=== PATIENT | male | born 1940 | race Caucasian/White ===

== ENCOUNTER 2017-04-30 15:08 | Inpatient (IN) ==
--- NOTE | 2017-04-30 15:47 | Emergency Department Note ---
Disposition Clinical Impression: Atrial flutter, Syncope Disposition: Admitted As Inpatient Condition: Good General Adult HPI - General Chief complaint: ED Arrhythmia/Palpitations Stated complaint: sent by the [facility], wearing heart monit Time Seen by Provider: 04/30/17 15:37 Source: patient Limitations: no limitations - History of Present Illness Pain Scale: 0 - Related Data Home Medications Medication Instructions Recorded Confirmed Losartan Potassium [Cozaar] 100 mg PO DAILY 04/30/17 04/30/17 Warfarin [Coumadin] 5 mg PO DAILY 04/30/17 04/30/17 Allergies Allergy/AdvReac Type Severity Reaction Status Date / Time No Known Allergies Allergy Verified 04/30/17 15:28 Past Medical History - Past Medical History Medical history: Reports: atrial fibrillation, coronary artery disease, hypertension, other Psychiatric history: Reports: no psych history - Social History Smoking Status: Never smoker Smokeless Tobacco Status: No Alcohol use: Reports: rarely Drug use: Reports: none Physical Exam - General Limitations: no limitations General appearance: alert Course Vital Signs Temperature 98.6 F 04/30/17 15:28 Pulse Rate 40 04/30/17 15:28 Respiratory Rate 14 04/30/17 15:28 Blood Pressure 145/58 04/30/17 15:28 O2 Sat by Pulse Oximetry 98 04/30/17 15:28 Temperature 98.4 F 05/02/17 11:44 Pulse Rate 60 05/02/17 11:00 Respiratory Rate 18 05/02/17 11:00 Blood Pressure 154/85 05/02/17 11:00 O2 Sat by Pulse Oximetry 95 05/02/17 11:00 Oxygen Delivery Oxygen Delivery Room Air Medical Decision Making - Lab Data Result diagrams: 04/30/17 18:33 05/02/17 04:05 Lab Results 04/30/17 04/30/17 04/30/17 Range/Units 18:33 18:33 18:33 WBC 6.4 (4.3-11.1) K/mcL RBC 4.47 (4.19-5.50) M/mcL Hgb 14.5 (12.9-16.9) g/dL Hct 42.8 (37.5-50.1) % MCV 95.7 (83.0-100.0) fL MCH 32.4 (28.0-33.3) pg MCHC 33.9 (31.6-35.5) g/dL RDW 13.2 (11.5-14.5) % Plt Count 176 (140-400) K/mcL MPV 9.8 (9.4-12.4) fL Immature Gran % 0.2 (0-4) % Seg Neutrophils % 60.9 % Lymphocytes % 24.3 % Monocytes % 12.7 % Eosinophils % 1.1 % Basophils % 0.8 % Neutrophils # 3.9 (1.6-8.9) K/mcL Lymphocytes # 1.6 (0.6-4.6) K/mcL Monocytes # 0.8 (0.0-1.3) K/mcL Eosinophils # 0.1 (0.0-0.6) K/mcL Basophils # 0.1 (0.0-0.2) K/mcL PT (9.4-12.1) Seconds INR Sodium 137 (136-145) mEq/L Potassium 4.6 (3.5-5.1) mEq/L Chloride 110 H (98-107) mEq/L Carbon Dioxide 21 L (23-29) mEq/L BUN 17 (8-23) mg/dL Creatinine 1.03 (0.70-1.30) mg/dL Est GFR ( Amer) > 60 (> 60) Est GFR (Non-Af Amer) > 60 (> 60) BUN/Creatinine Ratio 17 (6-26) Glucose 83 (70-105) mg/dL POC Glucose (58-89) Calculated Osmolality 285 (280-300) Calcium 8.8 (8.6-10.3) mg/dL Troponin I 0.03 (< 0.04) ng/mL 04/30/17 05/01/17 05/01/17 Range/Units 18:33 02:29 02:29 WBC (4.3-11.1) K/mcL RBC (4.19-5.50) M/mcL Hgb (12.9-16.9) g/dL Hct (37.5-50.1) % MCV (83.0-100.0) fL MCH (28.0-33.3) pg MCHC (31.6-35.5) g/dL RDW (11.5-14.5) % Plt Count (140-400) K/mcL MPV (9.4-12.4) fL Immature Gran % (0-4) % Seg Neutrophils % % Lymphocytes % % Monocytes % % Eosinophils % % Basophils % % Neutrophils # (1.6-8.9) K/mcL Lymphocytes # (0.6-4.6) K/mcL Monocytes # (0.0-1.3) K/mcL Eosinophils # (0.0-0.6) K/mcL Basophils # (0.0-0.2) K/mcL PT 27.3 H 26.9 H (9.4-12.1) Seconds INR 2.5 2.5 Sodium (136-145) mEq/L Potassium (3.5-5.1) mEq/L Chloride (98-107) mEq/L Carbon Dioxide (23-29) mEq/L BUN (8-23) mg/dL Creatinine (0.70-1.30) mg/dL Est GFR ( Amer) (> 60) Est GFR (Non-Af Amer) (> 60) BUN/Creatinine Ratio (6-26) Glucose (70-105) mg/dL POC Glucose (58-89) Calculated Osmolality (280-300) Calcium (8.6-10.3) mg/dL Troponin I 0.04 H* (< 0.04) ng/mL 05/01/17 Range/Units 05:11 WBC (4.3-11.1) K/mcL RBC (4.19-5.50) M/mcL Hgb (12.9-16.9) g/dL Hct (37.5-50.1) % MCV (83.0-100.0) fL MCH (28.0-33.3) pg MCHC (31.6-35.5) g/dL RDW (11.5-14.5) % Plt Count (140-400) K/mcL MPV (9.4-12.4) fL Immature Gran % (0-4) % Seg Neutrophils % % Lymphocytes % % Monocytes % % Eosinophils % % Basophils % % Neutrophils # (1.6-8.9) K/mcL Lymphocytes # (0.6-4.6) K/mcL Monocytes # (0.0-1.3) K/mcL Eosinophils # (0.0-0.6) K/mcL Basophils # (0.0-0.2) K/mcL PT (9.4-12.1) Seconds INR Sodium (136-145) mEq/L Potassium (3.5-5.1) mEq/L Chloride (98-107) mEq/L Carbon Dioxide (23-29) mEq/L BUN (8-23) mg/dL Creatinine (0.70-1.30) mg/dL Est GFR ( Amer) (> 60) Est GFR (Non-Af Amer) (> 60) BUN/Creatinine Ratio (6-26) Glucose (70-105) mg/dL POC Glucose 112 H (58-89) Calculated Osmolality (280-300) Calcium (8.6-10.3) mg/dL Troponin I (< 0.04) ng/mL Attestation Statement - Attestation Attestation: I examined this patient and my medical decision-making was reviewed with the Resident Physician. I agree with the documented findings, disposition and treatment plan as described except to the extent set forth below. [id number] time provided Patient was wearing a ekg monitor tech and was alerted by the [facility] to present to the closest emergency department. He appears in no acute distress. ECG reviewed by me. Patient has evidence of atrial flutter with a bundle branch block. Previous ECG unavailable for comparison. 17:54: He has been resting comfortably. He continues being monitored on the telemetry unit. He appears in no acute distress. Call placed to on-call cardiology at the [facility] after unsuccessful attempts to call both his manager software and the nurse practitioner
--- NOTE | 2017-04-30 16:25 | Emergency Department Note ---
Disposition Clinical Impression: Atrial flutter Qualifiers: Atrial flutter type: unspecified Qualified Code(s): I48.92 - Unspecified atrial flutter Syncope Qualifiers: Syncope type: unspecified Qualified Code(s): R55 - Syncope and collapse Disposition: Admitted As Inpatient Condition: Good Referrals: NONE,PCP [Primary Care Provider] - Forms: ED Satisfaction Letter Time of Disposition: 19:01 General Adult HPI - General Chief complaint: ED Arrhythmia/Palpitations Stated complaint: sent by the [facility], wearing heart monit Time Seen by Provider: 04/30/17 15:37 Source: patient Limitations: no limitations Nursing Notes Reviewed: Yes Vital Signs Reviewed: Yes - History of Present Illness HPI Narrative: 76-year-old male presents to the ED printer request of his food mixer from [facility]. Patient has a Holter monitor that has been present for over a month. Patient follows at the [facility] given episodes of fainting and he had a Holter monitor placed. Earlier today around 1300 patient reports episode of fainting lasting a few seconds. He contacted the monitoring company that he has fainted. States this was while at rest stating he just slumped over and then woke up within a few seconds. He denies any head injury. Denies any complaints at this time. He denies any chest pain or shortness of breath. He does take warfarin for his atrial flutter. Patient reports having his INR checked yesterday reports that was 2.7. Per his report his nurse practitioner food mixer Jerri called him to come for further evaluation given the episode today. At this time will contact the [facility] regarding the episode today. Currently he is resting comfortably in no acute distress. He is on the print line inspector which shows atrial flutter. Patient was adamant that he did not injure his head as he remains awake alert and oriented to person place and time. He refused the CT scan of the head. At this time okay to discontinue. Patient was also adamant that his INR was within normal limits and is not wish to be tested for his INR. Pain Scale: 0 - Related Data Home Medications Medication Instructions Recorded Confirmed Losartan Potassium [Cozaar] 100 mg PO DAILY 04/30/17 04/30/17 Warfarin [Coumadin] 5 mg PO DAILY 04/30/17 04/30/17 Allergies Allergy/AdvReac Type Severity Reaction Status Date / Time No Known Allergies Allergy Verified 04/30/17 15:28 All systems ED: reviewed and negative except as stated. Review of Systems: As Per HPI Constitutional: Denies: fever, chills ENT ED: Denies: congestion Cardiovascular: Reports: syncope. Denies: chest pain, dyspnea on exertion Respiratory: Denies: cough, dyspnea Gastrointestinal: Denies: abdominal pain, nausea, vomiting Genitourinary: Denies: urgency, dysuria Musculoskeletal: Denies: back pain, neck pain Integumentary: Denies: rash, abrasion Neurological: Denies: headache Past Medical History - Past Medical History Attestation: Yes The following information was validated with the patient. Source: patient Medical history: Reports: atrial fibrillation, coronary artery disease, hypertension, other Psychiatric history: Reports: no psych history - Social History Smoking Status: Never smoker Smokeless Tobacco Status: No Alcohol use: Reports: rarely Drug use: Reports: none Physical Exam - General Limitations: no limitations General appearance: alert, in no apparent distress - Head Head exam: atraumatic, normocephalic, normal inspection - Eye Eye exam: Present: normal appearance, PERRL, EOMI - ENT ENT exam: normal exam, normal oropharynx, mucous membranes moist - Neck Neck exam: Present: normal inspection, full ROM, trachea midline - Chest Chest inspection: Present: normal inspection, symmetric chest wall rise. Absent : tenderness - Respiratory Respiratory exam: Present: normal lung sounds bilaterally. Absent: respiratory distress, wheezes - Cardiovascular Cardiovascular exam: Present: bradycardia, irregular rhythm, normal heart sounds. Absent: systolic murmur, diastolic murmur - Abdominal Exam Abdominal exam: Present: soft, Non-Tender, normal bowel sounds. Absent: tenderness, distention, guarding, rebound, rigidity - Extremities Exam Extremities exam: Present: normal inspection, full ROM, normal capillary refill. Absent: tenderness, pedal edema - Neurological Exam Neurological exam: Present: alert, oriented X3, CN II-XII intact - Expanded Neurological Exam Patient oriented to: Present: person, place, time Speech: Present: fluid speech Cranial nerves: EOM function (II, III, IV, ): Normal, facial sensation (V): Normal, facial palsy (VII): Normal, gag reflex (IX): Normal, spinal accessory function (XI): Normal, tongue deviation (XII): Normal Cerebellar function: normal gait Motor strength - LUE: 5/5 Motor strength - RUE: 5/5 Motor strength - LLE: 5/5 Motor strength - RLE: 5/5 Upper motor neuron exam: johnie neglect: Absent bilaterally, pronator drift: Absent bilaterally Sensory exam upper extremity: light touch: Normal Sensory exam lower extremity: light touch: Normal - Psychiatric Psychiatric exam: Present: normal affect, normal mood - Skin Skin exam: Present: warm, dry, intact, normal color. Absent: rash, cyanosis, diaphoresis Course - Reevaluation(s) Reevaluation #1: On reevaluation patient continues be asymptomatic, his heart rate ranges from the 40-60s. He continues to be an atrial flutter rate controlled. He remains hemodynamically stable. Review of his labs unremarkable. Patient will continue to require constant cardiac monitoring while he has admitted. Discussed with cardiology up in [facility] and they recommended this as well. He is in agreement with this plan. Impression is syncope and cardiac pause. She has been accepted by the hospitalist Dr. Romero - Consultations Consultation #1: Attempted multiple calls to his food mixer Dr. Binu Tovar [phone] and MARV Guthrie [phone] without success. Called the [facility], spoke with on-call food mixer Dr. Jennifer Garcia who reviewed the cardiac reading from [facility] states he has of chronic history of atrial flutter and when he had the fainting episode today it appeared he had a 10 2nd kerri. Recommend of further evaluation and admission for cardiac monitoring. Patient currently remains asymptomatic here denies any chest pain or shortness of breath. Denies any lightheadedness. He sitting comfortably in the room reading the book. He is ambulated through the apartment to urinate without difficulty. Offered him admission to the [facility] and he would prefer to be admitted here for evaluation. Recommendation is to call his food mixer at the [facility] for any new or persisting symptoms. With shared decision making patient agrees with admission for cardiac monitoring. Basic labs ordered. Patient is adamant that he did not strike is had. No CT of the head ordered. It was canceled. Vital Signs Temperature 98.6 F 04/30/17 15:28 Pulse Rate 40 04/30/17 15:28 Respiratory Rate 14 04/30/17 15:28 Blood Pressure 145/58 04/30/17 15:28 O2 Sat by Pulse Oximetry 98 04/30/17 15:28 Temperature 98.6 F 04/30/17 15:28 Pulse Rate 42 04/30/17 18:41 Respiratory Rate 18 04/30/17 18:41 Blood Pressure 188/71 04/30/17 18:41 O2 Sat by Pulse Oximetry 98 04/30/17 18:41 Oxygen Delivery Oxygen Delivery Room Air Medical Decision Making - MDM Narrative Medical decision making narrative: Patient was discussed with my attending physician who agrees with ED management and final disposition. They independently evaluated the patient. Please refer to their attestation to this encounter for additional information. This note was generated by [employer] voice recognition software and as a result grammatical or spelling errors may occur using this program. - Medical Records Medical records reviewed: Yes I reviewed the patient's medical records. - Lab Data Lab results reviewed: Yes I reviewed the patient's lab results. Result diagrams: 04/30/17 18:33 04/30/17 18:33 Lab Results 04/30/17 04/30/17 Range/Units 18:33 18:33 WBC 6.4 (4.3-11.1) K/mcL RBC 4.47 (4.19-5.50) M/mcL Hgb 14.5 (12.9-16.9) g/dL Hct 42.8 (37.5-50.1) % MCV 95.7 (83.0-100.0) fL MCH 32.4 (28.0-33.3) pg MCHC 33.9 (31.6-35.5) g/dL RDW 13.2 (11.5-14.5) % Plt Count 176 (140-400) K/mcL MPV 9.8 (9.4-12.4) fL Immature Gran % 0.2 (0-4) % Seg Neutrophils % 60.9 % Lymphocytes % 24.3 % Monocytes % 12.7 % Eosinophils % 1.1 % Basophils % 0.8 % Neutrophils # 3.9 (1.6-8.9) K/mcL Lymphocytes # 1.6 (0.6-4.6) K/mcL Monocytes # 0.8 (0.0-1.3) K/mcL Eosinophils # 0.1 (0.0-0.6) K/mcL Basophils # 0.1 (0.0-0.2) K/mcL Sodium 137 (136-145) mEq/L Potassium 4.6 (3.5-5.1) mEq/L Chloride 110 H (98-107) mEq/L Carbon Dioxide 21 L (23-29) mEq/L BUN 17 (8-23) mg/dL Creatinine 1.03 (0.70-1.30) mg/dL Est GFR ( Amer) > 60 (> 60) Est GFR (Non-Af Amer) > 60 (> 60) BUN/Creatinine Ratio 17 (6-26) Glucose 83 (70-105) mg/dL Calculated Osmolality 285 (280-300) Calcium 8.8 (8.6-10.3) mg/dL - EKG Data EKG #1 EKG attestation: Yes I reviewed and interpreted this EKG. EKG results narrative: EKG performed 1547 atrial flutter 80 bpm with findings of left bundle branch block. Unsure if this is new onset. Suspect unlikely. QRS 158. No Sgarbossa criteria. On the print line inspector appears to be more of a 3 to 1 block atrial flutter block.
[2017-04-30 18:41] LABS: Basophils # 0.1 K/mcL (0.0-0.2); Basophils % 0.8 %; Eosinophils # 0.1 K/mcL (0.0-0.6); Eosinophils % 1.1 %; Hematocrit 42.8 % (37.5-50.1); Hemoglobin 14.5 g/dL (12.9-16.9); Immature Granulocytes % 0.2 % (0-4); Lymphocytes # 1.6 K/mcL (0.6-4.6); Lymphocytes % 24.3 %; Mean Corpuscular HGB Conc 33.9 g/dL (31.6-35.5); Mean Corpuscular Hemoglobin 32.4 pg (28.0-33.3); Mean Corpuscular Volume 95.7 fL (83.0-100.0); Mean Platelet Volume 9.8 fL (9.4-12.4); Monocytes # 0.8 K/mcL (0.0-1.3); Monocytes % 12.7 %; Neutrophils # 3.9 K/mcL (1.6-8.9); Platelet Count 176 K/mcL (140-400); Red Blood Count 4.47 M/mcL (4.19-5.50); Red Cell Distribution Width 13.2 % (11.5-14.5); Segmented Neutrophils % 60.9 %
[2017-04-30 18:55] LABS: BUN/Creatinine Ratio 17 (6-26); Blood Urea Nitrogen 17 mg/dL (8-23); Calcium 8.8 mg/dL (8.6-10.3); Carbon Dioxide 21 mEq/L (23-29); Chloride 110 mEq/L (98-107); Glucose 83 mg/dL (70-105); Osmolality,Calculated 285 (280-300); Potassium 4.6 mEq/L (3.5-5.1); Sodium 137 mEq/L (136-145); eGFR For African Americans > 60 (> 60); eGFR For Non-African Americans > 60 (> 60)
[2017-04-30] MEDS ORDERED: Naloxone 0.4 MG/ML INJ IVP PRN (20:00)
--- NOTE | 2017-04-30 20:12 | Internal Med History&Physical ---
<Galileo Foss - Last Filed: 04/30/17 20:07> Date of Encounter: 04/30/17 Time of Encounter: 20:07 Assessment and Plan (1) Syncope Current visit: Yes Status: Acute Syncopal event this afternoon. Patient wearing a holter monitor d/t syncopal event 3-months ago as well as a reported valvular abnormality. [facility] etch operator semiconductor wafers services host called and stated he had a 10- second pause at the time of syncopal event. He is being seen by cardiology at [facility] as well as Dr. Bauman at [facility]. -TTE -continuous tele, -trop now -Consult cardiology- I spoke with Dr. Hernandez recommended continuous monitoring as long as the patient is stable. However should the patient become unstable overnight she recommended to call interventionalist for temporary pacer placement -NPO after midnight for possible pacer placement in the morning -respiratory support per NC PRN, currently resting comfortably in no distress on RA -CBCD, BMP in the am Qualifiers: Syncope type: unspecified Qualified Code(s): R55 - Syncope and collapse (2) Atrial flutter Current visit: Yes Status: Acute Present today following syncopal event. He reports a h/o a-fib, however, EKG in ED today show the patient in A-flutter with 3-1 conduction. He denies any CP , or SOB. He is on coumadin for h/o a-fib, I will resume coumadin with pharmacy to dose. PT/INR now and PT/INR in the am per PT. I will obtain a troponin now and continue to follow results.. Qualifiers: Atrial flutter type: unspecified Qualified Code(s): I48.92 - Unspecified atrial flutter (3) HTN (hypertension) Current visit: Yes Status: Acute H/o HTN, SBP 170's. He reports that he has not had his losartan today. Resume home losartan now. I have called the ED RN and reported that he needs his dose now. Continue to follow BP and add adjunct therapy as needed. Qualifiers: Hypertension type: essential hypertension Qualified Code(s): I10 - Essential (primary) hypertension (4) DVT prophylaxis Current visit: Yes Status: Acute Continue coumadin Internal Medicine - H&P: HPI Chief complaint: syncope Admitted From: Home Plans for Post Hospital Care: Home History of present illness: Mr. Delgado is a 76 year old male with a PMH of a-fib, CAD, syncope and HTN who presents to [facility] today following a syncopal event this afternoon at approximately 1:00. The patient reports he has experienced a similar event approximately 3 months ago which caused him to seek care at [facility] with her cardiology group. He reports this afternoon he was in his home office and began to sit down in his chair and lost consciousness. He has been wearing a Holter monitor due to syncopal event 3 months ago. He called his services host at the [facility] who suggested he come to the emergency department for further workup and evaluation. While at the emergency department the ED physician contacted the services host etch operator semiconductor wafers for the [facility] who reviewed the patient's rhythm at the time of syncopal event and noted the patient had a 10 second pause. It should be noted that the patient is on Coumadin for atrial fibrillation, he denies hitting his head during syncopal event and refuses a CAT scan. The patient denies any chest pain , shortness of breath, diaphoresis, nausea, lightheadedness or any additional complaints at this time and is resting comfortably. He remains hemodynamically stable with a heart rate in the 50s. Patient appears to have atrial flutter per EKG. also, currently on telemetry he appears to be in atrial flutter. He is being admitted for further workup and monitoring. Past Med Surg Social Fam HX - Past Medical History Medical history: atrial fibrillation, coronary artery disease, hypertension, other Psychiatric history: no psych history - Social History Smoking Status: Never smoker Smokeless Tobacco Status: No Alcohol use: rarely Drug use: none - Additional Family History Additional family history: Noncontributory Internal Medicine - H&P: Meds Losartan Potassium [Cozaar] 100 mg PO DAILY 04/30/17 [History] Warfarin [Coumadin] 5 mg PO DAILY 04/30/17 [History] 3 Allergy/AdvReac Type Severity Reaction Status Date / Time No Known Allergies Allergy Verified 04/30/17 15:28 All Systems PM: A 10-system review of systems was performed and is negative for pertinent findings except as documented above in the HPI. Review of systems: REVIEW OF SYSTEMS GENERAL: Negative for any nausea, vomiting, fevers, chills, or weight loss. NEUROLOGIC: Negative for any blurry vision, blind spots, double vision, facial asymmetry, dysphagia, dysarthria, hemiparesis, hemisensory deficits, vertigo, ataxia. HEENT: Negative for any head trauma, neck trauma, neck stiffness, photophobia, phonophobia, sinusitis, rhinitis. CARDIAC: Negative for any chest pain, dyspnea on exertion, paroxysmal nocturnal dyspnea, peripheral edema. Positive for palpitations and syncopal event this afternoon PULMONARY: Negative for any shortness of breath, wheezing, COPD, or TB exposure. GASTROINTESTINAL: Negative for any abdominal pain, nausea, vomiting, bright red blood per rectum, melena. GENITOURINARY: Negative for any dysuria, hematuria, incontinence. INTEGUMENTARY: Negative for any rashes, cuts, insect bites. RHEUMATOLOGIC: Negative for any joint pains, photosensitive rashes, history of vasculitis or kidney problems. HEMATOLOGIC: Negative for any abnormal bruising, frequent infections or bleeding. - Constitutional Vitals: Temp Pulse Resp BP Pulse Ox 98.6 F 42 18 188/71 98 04/30/17 15:28 04/30/17 18:41 04/30/17 18:41 04/30/17 18:41 04/30/17 18:41 General appearance: Present: cooperative, A&O X 3, no acute distress, answers questions appropriately - Head Head exam: Present: atraumatic, normocephalic - Neck Neck exam general surgery: Present: supple, trachea midline. Absent: lymphadenopathy - Respiratory Respiratory exam: Present: CTAB. Absent: accessory muscle use, rales, rhonchi, wheezes - Cardiovascular Cardiovascular exam: Present: bradycardia, irregular rhythm, +S1, +S2 - GI/Abdominal GI/Abdominal exam: Present: normal bowel sounds, soft, no peritoneal signs. Absent: distended, tenderness - Extremities Exam Extremities exam: Present: warm, radial pulses palpable and symmetrical. Absent : calf tenderness, cyanotic, pedal edema - Neurological Exam Neurological exam: Present: normal gait, oriented X3 - Skin Skin exam: Present: dry, intact Internal Med - H&P Results - Labs CBC & Chem 7: 04/30/17 18:33 04/30/17 18:33 Labs: Short CBC 04/30/17 Range/Units 18:33 WBC 6.4 (4.3-11.1) K/mcL Hgb 14.5 (12.9-16.9) g/dL Hct 42.8 (37.5-50.1) % Plt Count 176 (140-400) K/mcL Neutrophils # 3.9 (1.6-8.9) K/mcL BMP 04/30/17 18:33 Sodium 137 Potassium 4.6 Chloride 110 H Carbon Dioxide 21 L BUN 17 Creatinine 1.03 Glucose 83 Calcium 8.8 - EKG Data -: EKG Interpreted by Myself - EKG Data EKG comments: ATRIAL FLUTTER RATE OF 80 04/30/17 20:24 - VTE Reasons for not Prescribing Prophylaxis: Not indicated-Anticoagulated or INR therapeutic <Akua Viveros - Last Filed: 04/30/17 23:15> Date of Encounter: 04/30/17 Internal Medicine - H&P: HPI History of present illness: Mr. Delgado is a 76 year old male All Systems PM: A 10-system review of systems was performed and is negative for pertinent findings except as documented above in the HPI. - Constitutional Vitals: Temp Pulse Resp BP Pulse Ox 98.6 F 51 20 172/80 93 04/30/17 15:28 04/30/17 20:10 04/30/17 21:19 04/30/17 21:19 04/30/17 20:10 Internal Med - H&P Results - Labs CBC & Chem 7: 04/30/17 18:33 04/30/17 18:33 - Attending Attestation Patient is a 76y/o male who is admitted for syncope. Pt currently asymptomatic, noted to be bradycardic but asymptomatic Cardiology evaluation requested Pt has history of Aflutter and on Coumadin, INR within therapeutic range as reported by the patient. Last INR on 04/29/17 as per pt was 2.7, and he took his coumadin this morning. Will continue Coumadin, and monitor INR. noted to be hypertensive, restarted home medications, if BP remains elevated, Hydralazine 10mg IVP q6h prn SBP>160 added will obtain 2D echo NPO after midnight Case discussed with PAMELA Foss, I agree with his documented findings, assessment, and plan except as listed above.
[2017-04-30 21:12] LABS: INR 2.5; Prothrombin Time 27.3 Seconds (9.4-12.1)
[2017-05-01] MEDS ORDERED: *HR* Atropine Sulfate 1 MG/10 ML SYRINGE IVP STA ×2 (01:47→02:03)
[2017-05-01] MEDS ORDERED: *HR* Atropine Sulfate 1 MG/10 ML SYRINGE ONE (01:48)
[2017-05-01 02:41] LABS: INR 2.5; Prothrombin Time 26.9 Seconds (9.4-12.1)
--- NOTE | 2017-05-01 02:41 | Event Note ---
Date of Encounter: 05/01/17 Time of Encounter: 02:01 Pt reported to have HR sustaining in 20s. I evaluated the patient, and he remained asymptomatic, with a HR of 29-35. Two dose of 0.5mg IV atropine were given, HR continued to sustain in high 20s and low 30s. Pt remained asymptomatic. BP within acceptable range Dr. Walker (video machines mechanic) consulted, as per his recommendations, pt to be started on dopamine gtt. Will transfer to ICU Atropine at bedside. will continue to closely monitor
[2017-05-01] MEDS ORDERED: 0.9 % Sodium Chloride 500 ML ONE ×2 (02:57→12:21)
[2017-05-01] MEDS ORDERED: NON-FORMULARY MEDICATION 1 EACH EACH (Losartan Potassium [Cozaar] 100 MG) PO SCH (09:00)
--- NOTE | 2017-05-01 09:22 | Electrophysiology Consult Note ---
<Mamta Bullock Wilber - Last Filed: 05/01/17 10:53> Date of Encounter: 05/01/17 Time of Encounter: 08:00 Assessment and Plan (1) Syncope Current Visit: Yes Status: Acute x2 syncopal episodes in the past month. Episode 04/30/17 correlated with 10 second pause as documented on event monitor. ECG shows HR 47, atrial flutter with LBBB. Reviewed telemetry, ECG's with Dr. Joe Bhat. HR 30's atrial flutter at bedside on dopamine gtt at 5mL/hr. Min HR=23 noted per telemetry review. Blood pressure stable. Spoke with patient's Shuttle Inspector at [facility], Dr. Tovar who reviewed event monitor and recommended PPM--reviewed hx including HOCM, aflutter. No indication for ICD (HOCM) at this juncture due to low risk findings on MRI. Recent TTE September 2016: EF 65%, moderately dilated LA/RA, mild MR/AR. INR 2.5 (on coumadin); will hold. Discussed and reviewed alternatives, benefits, and risks with patient at length ; he is agreeable to proceed with implantation of PPM today. Further recommendations to follow. Qualifiers: Syncope type: unspecified Qualified Code(s): R55 - Syncope and collapse (2) Atrial flutter Current Visit: Yes Status: Acute Reports recent dx of atrial fibrillation in March 2017. ECG today shows atrial flutter. On coumadin, INR monitored by Shuttle Inspector at [facility]--started "around" 04/13/17. Has not been on AV suzanne blocking agents. Recommended patient to follow-up with Shuttle Inspector at [facility] [place] for further mgmt. of atrial fibrillation/flutter. Qualifiers: Atrial flutter type: unspecified Qualified Code(s): I48.92 - Unspecified atrial flutter (3) HTN (hypertension) Current Visit: Yes Status: Acute Currently hypertensive on dopamine gtt. Continue to wean of dopamine gtt as HR will allow. Qualifiers: Hypertension type: essential hypertension Qualified Code(s): I10 - Essential (primary) hypertension Discussion w patient/family: The assessment and plan as outlined above was discussed with the patient and/or family members who expressed understanding and agreement. All questions were answered. Thank you for involving us in the care of your patient. Please call with any questions. The patient was discussed and reviewed with Dr. Joe Bhat who agrees with plan as stated above. History of Present Illness Consult date: 05/01/17 Requesting physician: Galileo Foss Consult reason: Syncope Chief complaint: Syncope History of present illness: Mr. 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 Patient reports he was talking on the phone when he "fainted" for seconds. He reports he fell back into his office chair. He denies injury. At the time he was wearing an event monitor, he then triggered the episode which led to a phone call from [facility] instructing patient to go to the ED. Per ED reports, monitor confirmed 10 second pause. Patient reports similar episode a month ago which led to application of event monitor. Patient reports that he was told he had "afib" close to a month ago. He started warfarin about 2-3 weeks ago, INR monitored by Shuttle Inspector at [facility]. Recent testing: TTE 10/08/16: EF 65%, moderately dilated LA/RA, mild MR/AR, IVSd 1.8 cm C 10/25/14 ([facility] [place]): mild, non-obstructive CAD. Past Med Surg Social Fam HX - Past Medical History Attestation: Yes The following information was validated with the patient. Source: patient, old records reviewed Medical history: atrial fibrillation, hypertension, other (HOCM) Psychiatric history: no psych history - Social History Smoking Status: Never smoker Smokeless Tobacco Status: No Alcohol use: rarely Drug use: none - Family History Brother History Unknown: Yes Medications and Allergies Losartan Potassium [Cozaar] 100 mg PO DAILY 04/30/17 [History] Warfarin [Coumadin] 5 mg PO DAILY 04/30/17 [History] 3 Allergy/AdvReac Type Severity Reaction Status Date / Time No Known Allergies Allergy Verified 04/30/17 15:28 All Systems Review: A 10-system review of systems was performed and is negative for pertinent findings except as documented above in the HPI. - Cardiovascular Cardiovascular: as per HPI Physical Examination Vital Signs, Last 4 Hours Temp Pulse Resp BP Pulse Ox 05/01/17 09:00 96 18 189/104 96 05/01/17 08:00 49 20 162/76 90 05/01/17 07:41 97.8 F 05/01/17 07:25 32 05/01/17 07:00 30 18 148/73 90 05/01/17 05:30 97.1 F L 34 16 138/62 95 General: Conversant HEENT: Atraumatic, Normocephaly Cardiac: Other (bradycardiac, irregularly irregular, systolic murmur) Neuro: Alert and responsive Abdomen: Soft Skin: No rashes noted on visualized skin Musculoskeletal: No Chest Wall Tenderness Extremities: Other (mild BLE edema) Results 04/30/17 18:33 04/30/17 18:33 Lab Results 05/01/17 05/01/17 02:29 02:29 INR 2.5 Troponin I 0.04 H* Active Medications Hydralazine HCl (Hydralazine) 10 mg IVP Q6HR PRN PRN Reason: SBP>160 Stop: 10/30/17 23:11 Dopamine HCl/Dextrose (Dopamine Premix 400mg/250ml) 400 mg in 250 mls @ 16.159 mls/hr IVC .[id number] TORIE; 5 MCG/KG/MIN PRN Reason: Protocol Stop: 10/31/17 02:46 Last Titration: 05/01/17 09:14 Dose: 4 mcg/kg/min, 12.927 mls/hr Losartan Potassium (Cozaar) 100 mg PO DAILY TORIE Stop: 10/30/17 20:14 Last Admin: 05/01/17 07:42 Dose: Not Given Naloxone HCl (Narcan) 0.4 mg IVP Q2MIN PRN PRN Reason: Opioid Reversal Stop: 10/30/17 20:01 Omeprazole (Prilosec) 40 mg PO DAILY@0630 TORIE PRN Reason: Protocol Stop: 10/31/17 06:31 Last Admin: 05/01/17 07:05 Dose: Not Given Warfarin Sodium (Coumadin Perpt) 1 each PO DAILY@1800 PRN PRN Reason: SEE COMMENTS Stop: 10/31/17 18:01 - Imaging and Cardiology Echo: report reviewed Cardiac cath: report reviewed Other Results: 12 hour tele: avg HR=58 atrial flutter, min=24, 2.5 sec pause - EKG Interpretation EKG results cardiology: personally reviewed Consult Discharge Plan - Plan Referrals: NONE,PCP [Primary Care Provider] - <BhatJoe - Last Filed: 05/01/17 14:22> Date of Encounter: 05/01/17 - Attending Attestation I have personally performed a face to face evaluation on this patient. I have reviewed and agree with the care plan. History and Exam by me shows: History of HOCM, recent diagnosis of AF. Holter monitor was placed at outside facility which showed AFL and a 10 sec. pause. He was referred to [facility] for possible pacemaker. Risks and benefits were discussed, he agreed to proceed. Assessment and Plan Discussion w patient/family: The assessment and plan as outlined above was discussed with the patient and/or family members who expressed understanding and agreement. All questions were answered. Thank you for involving us in the care of your patient. Please call with any questions. History of Present Illness History of present illness: Mr. Delgado is a 76 year old male All Systems Review: A 10-system review of systems was performed and is negative for pertinent findings except as documented above in the HPI. Physical Examination Vital Signs, Last 4 Hours Temp Pulse Resp BP Pulse Ox 05/01/17 14:00 174/87 05/01/17 13:57 60 18 174/87 99 05/01/17 12:00 33 20 132/91 94 05/01/17 11:33 97.8 F 05/01/17 11:00 38 18 158/75 96 Results 04/30/17 18:33 04/30/17 18:33
[2017-05-01] MEDS ORDERED: CeFAZolin Syr 2,000MG/20 ML 2,000 MG/20 ML SYRINGE IVPB ONE (10:34)
[2017-05-01] MEDS ORDERED: *HR* Promethazine 25 MG/ML VIAL ONE (10:59)
[2017-05-01] MEDS ORDERED: *HR* Promethazine 25 MG/ML VIAL IM ONE (11:12)
--- NOTE | 2017-05-01 11:33 | Pre-Sedation Evaluation ---
Pre-sedation evaluation - Pre-sedation checklist Date of procedure: 05/01/17 Recent Vitals: Last Vital Signs Temp 97.8 F 05/01/17 07:41 Pulse 38 05/01/17 11:00 Resp 18 05/01/17 11:00 BP 158/75 05/01/17 11:00 Pulse Ox 96 05/01/17 11:00 H&P (including ROS) documented in medical record: Yes Previous reaction to sedatives/anesthetics: No Dietary Status: NPO after Midnight Airway Assessment: Patient can open mouth completely, TMJ function normal, Micrognathia (under-bite, receding chin) absent Dentition: No loose teeth or bridges Possible difficult airway: No ASA Classification *see protocol: CLASS II-Mild systemic disease Plan of Care: Pt appropriate candidate for procedure/moderate/conscious sedation , Risks/benefits of procedure/sedation discussed w/ patient/family
[2017-05-01] MEDS ORDERED: Water for inj. (sterile) 10 ML IV ONE (12:22)
[2017-05-01] MEDS ORDERED: *HR* FentaNYL (PF) 100 MCG/2 ML VIAL ONE (12:30)
[2017-05-01] MEDS ORDERED: 0.9 % Sodium Chloride 1,000 ML ONE (12:30)
[2017-05-01] MEDS ORDERED: *HR* Midazolam HCl 2 MG/2 ML VIAL ONE (12:31)
--- NOTE | 2017-05-01 13:04 | Internal Med Progress Note ---
Date of Encounter: 05/01/17 Time of Encounter: 11:15 - Assessment and plan (1) Syncope Current Visit: Yes Status: Acute Assessment and plan: Due to bradycardia. Improved clinically. They will continue to monitor closely as patient remains on dopamine drip. Cardiology following. Height is 4 complications. Qualifiers: Syncope type: unspecified Qualified Code(s): R55 - Syncope and collapse (2) Atrial flutter Current Visit: Yes Status: Acute Assessment and plan: Patient with atrial flutter with bradycardia. Evaluated by cardiology. Plan pacemaker placement later today. Qualifiers: Atrial flutter type: unspecified Qualified Code(s): I48.92 - Unspecified atrial flutter (3) Bradycardia with 31-40 beats per minute Current Visit: Yes Status: Acute Assessment and plan: On dopamine drip. Poorly responding. Plan for pacemaker placement later today per cardiology recommendations (4) DVT prophylaxis Current Visit: Yes Status: Acute Assessment and plan: On Coumadin with INR of 2.5 (5) HTN (hypertension) Current Visit: Yes Status: Chronic Assessment and plan: Blood pressure was elevated earlier this morning but has now improved. Continue losartan. Hydralazine as needed. Monitor blood pressure closely. Qualifiers: Hypertension type: essential hypertension Qualified Code(s): I10 - Essential (primary) hypertension - Subjective Interval history: Patient is doing better at this time. No shortness of breath. No chest pain. No lightheadedness or dizziness. Has been on a dopamine drip. Heart rate varying between 30s and 50s. - Constitutional Vitals: Temp Pulse Resp BP Pulse Ox 97.8 F 33 20 132/91 94 05/01/17 11:33 05/01/17 12:00 05/01/17 12:00 05/01/17 12:00 05/01/17 12:00 General appearance: Present: cooperative, A&O X 3, no acute distress, answers questions appropriately - Respiratory Respiratory exam: Present: CTAB. Absent: accessory muscle use, rales, rhonchi, wheezes - Cardiovascular Cardiovascular exam: Present: bradycardia, +S1, +S2. Absent: diastolic murmur, gallop, rubs, systolic murmur - GI/Abdominal GI/Abdominal exam: Present: normal bowel sounds, soft, no peritoneal signs. Absent: distended, tenderness - Extremities Exam Extremities exam: Present: warm, radial pulses palpable and symmetrical. Absent : calf tenderness, cyanotic, pedal edema - Neurological Exam Neurological exam: Present: CN II-XII intact, oriented X3, no focal deficits. Absent: facial droop, speech deficit Internal Medicine: Result - Labs CBC & Chem 7: 04/30/17 18:33 04/30/17 18:33 - ABG Interpretation ABG results: PT/INR, D-dimer PT 26.9 Seconds (9.4-12.1) H 05/01/17 02:29 - Impressions Impressions Echocardiogram 05/01/17 23:10 Impressions: Atrial flutter, BBB. Heart rate 30's. LVEF 55%. Indeterminate diastolic function. Normal right ventricular structure and function. Bi-atrial enlargement. Mild aortic regurgitation. Mild-moderate mitral regurgitation. Systolic anterior motion (CHELSEY) of the anterior leaflet of the mitral valve is noted. There is a mild outflow tract obstruction, PG 24 mmHg. Mild tricuspid regurgitation. Mild pulmonary hypertension. Left Ventricular Wall Motion: Rest Echo Findings All wall segments showed normal motion. Findings: Study Quality * Technically adequate exam. ECG Findings * Atrial flutter, BBB. Heart rate 30's. Left Ventricle * Basal septal hypertrophy. * LVEF 55%. * Indeterminate diastolic function. Right Ventricle * Normal right ventricular structure and function. Left Atrium * Moderately dilated left atrium. Right Atrium * Moderately dilated right atrium. Aortic Valve * Aortic valve not well visualized. * No aortic stenosis. * Mild aortic regurgitation. Mitral Valve * Normal mitral valve structure. * No mitral stenosis. * Mild mitral annular calcification * Mild-moderate mitral regurgitation. * Systolic anterior motion (CHELSEY) of the anterior leaflet of the mitral valve is noted. There is a mild outflow obstruction, PG 24 mmHg. Tricuspid Valve * Mild tricuspid regurgitation. * Normal tricuspid valve structure. * Estimated RA pressure is 8 mmHg. * Estimated RVSP is 47 mmHg. * Mild pulmonary hypertension. Pulmonic Valve * Pulmonic valve is not well visualized. * No pulmonic stenosis. * No pulmonic regurgitation. Pulmonary Artery * Pulmonary artery not well visualized. Aorta * Normally sized aortic root. * Ascending aorta is not well visualized. Pericardium * There is no pericardial effusion present. Interatrial Septum * No evidence of PFO by color Doppler. IVC * The IVC is not dilated. * < 50% respiratory change. - VTE Reasons for not Prescribing Prophylaxis: Not indicated-Anticoagulated or INR therapeutic Consult Discharge Plan - Plan Referrals: NONE,PCP [Primary Care Provider] -
[2017-05-01] MEDS ORDERED: Acetaminophen 325 MG TABLET PO PRN (13:57)
[2017-05-01] MEDS ORDERED: *HR* Morphine 2 MG/ML SYRINGE IVP PRN (13:57)
--- NOTE | 2017-05-01 15:05 | Electrocardiograph Report ---
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
--- NOTE | 2017-05-01 15:15 | Electrocardiograph Report ---
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
[2017-05-01] MEDS ORDERED: Warfarin perPT PO PRN (18:00)
[2017-05-01] MEDS: CeFAZolin Premix DUPLEX 2,000 MG/50 ML BAG IVPB SCH (18:05)
[2017-05-02] MEDS: CeFAZolin Premix DUPLEX 2,000 MG/50 ML BAG IVPB SCH (03:30)
[2017-05-02 04:23] LABS: INR 2.1; Prothrombin Time 22.7 Seconds (9.4-12.1)
[2017-05-02 04:33] LABS: BUN/Creatinine Ratio 18 (6-26); Blood Urea Nitrogen 19 mg/dL (8-23); Carbon Dioxide 23 mEq/L (23-29); Chloride 111 mEq/L (98-107); Potassium 4.5 mEq/L (3.5-5.1); Sodium 139 mEq/L (136-145); eGFR For African Americans > 60 (> 60); eGFR For Non-African Americans > 60 (> 60)
--- NOTE | 2017-05-02 09:30 | Electrophysiology ProgressNote ---
Date of Encounter: 05/02/17 Time of Encounter: 09:00 Assessment and Plan (1) Syncope Current Visit: Yes Status: Acute x2 syncopal episodes in the past month. Episode 04/30/17 correlated with 10 second pause as documented on event monitor. ECG shows HR 47, atrial flutter with LBBB. Reviewed telemetry, ECG's with Dr. Joe Bhat. HR 30's atrial flutter at bedside on dopamine gtt at 5mL/hr. Min HR=23 noted per telemetry review. Blood pressure stable. Spoke with patient's Manufacturing Industrial Engineer at [facility], Dr. Tovar who reviewed event monitor and recommended PPM--reviewed hx including HOCM, aflutter. No indication for ICD (HOCM) at this juncture due to low risk findings on MRI. Current TTE: EF 55%, biatrial enlargement, mild AR, mild-moderate MR, CHELSEY with mild outflow tract obstruction, normal wall motion. s/p successful implant of dual chamber (MRI safe) PPM by Dr. Joe Bhat on 05/01. Patient also converted to NSR during procedure. Will need to remain on coumadin, goal 2-3. INR followed by Manufacturing Industrial Engineer in [place], [place]. Has upcoming appt Friday. Patient was instructed to continue home dosing this evening. CXR yesterday afternoon and again this morning demonstrated stable CXR. Device check completed this AM by [employer] rep demonstrated normal functioning PPM. Cardiology will sign-off. Will arrange for outpatient follow-up. Qualifiers: Syncope type: unspecified Qualified Code(s): R55 - Syncope and collapse (2) Atrial flutter Current Visit: Yes Status: Acute Reports recent dx of atrial fibrillation in March 2017. ECG today shows atrial flutter. On coumadin, INR monitored by Manufacturing Industrial Engineer at [facility]--started "around" 04/13/17. Has not been on AV suzanne blocking agents. Recommended patient to follow-up with Manufacturing Industrial Engineer at [facility] for further mgmt. of atrial fibrillation/flutter. Converted to SR during procedure on 05/01/17 therefore will need to remain on coumadin. Qualifiers: Atrial flutter type: unspecified Qualified Code(s): I48.92 - Unspecified atrial flutter (3) HTN (hypertension) Current Visit: Yes Status: Chronic Remains hypertensive. Defer further medication recs to primary service. Qualifiers: Hypertension type: essential hypertension Qualified Code(s): I10 - Essential (primary) hypertension Discussion w patient/family: The assessment and plan as outlined above was discussed with the patient and/or family members who expressed understanding and agreement. All questions were answered. Thank you for involving us in the care of your patient. Please call with any questions. The patient was discussed and reviewed with Dr. Joe Bhat who agrees with plan as stated above. Subjective Principal diagnosis: Syncope Interval history: Seen and examined. s/p implantation of dual chamber PPM on 05/01/17. Also converted to SR during procedure. No issues overnight. c/o mild tenderness at implant site. Objective Vital Signs, Last 4 Hours Temp Pulse Resp BP Pulse Ox 05/02/17 07:17 98.7 F 05/02/17 06:00 61 16 152/68 96 General: Conversant, No Apparent Distress HEENT: Atraumatic, Normocephaly Cardiac: Reg Rate and Rhythm, Normal S1 and S2 Lungs: Normal Breath Sounds, No Wheeze, Rales, Rhonchi Neuro: Alert and responsive, No focal deficits noted Abdomen: Soft Skin: No rashes noted on visualized skin Musculoskeletal: No Chest Wall Tenderness Extremities: Other (mild BLE edema) Other: Left upper chest wall: incision clean dry and intact. Dressing removed, steri strips intact. No hematoma, ecchymosis, or bleeding at site. Results 04/30/17 18:33 05/02/17 04:05 Lab Results 05/02/17 05/02/17 04:05 04:05 INR 2.1 Sodium 139 Potassium 4.5 Chloride 111 H Carbon Dioxide 23 BUN 19 Creatinine 1.08 Active Medications Acetaminophen (Tylenol) 650 mg PO Q4HR PRN PRN Reason: Mild Pain Stop: 10/31/17 13:58 Hydralazine HCl (Hydralazine) 10 mg IVP Q6HR PRN PRN Reason: SBP>160 Stop: 10/30/17 23:11 Last Admin: 05/01/17 14:33 Dose: 10 mg Losartan Potassium (Cozaar) 100 mg PO DAILY TORIE Stop: 10/30/17 20:14 Last Admin: 04/30/17 21:21 Dose: 100 mg Morphine Sulfate (Morphine Sulfate) 2 mg IVP Q4HR PRN PRN Reason: Severe Pain Stop: 10/31/17 13:58 Naloxone HCl (Narcan) 0.4 mg IVP Q2MIN PRN PRN Reason: Opioid Reversal Stop: 10/30/17 20:01 Omeprazole (Prilosec) 40 mg PO DAILY@1800 TORIE PRN Reason: Protocol Stop: 10/31/17 18:01 Last Admin: 05/01/17 18:00 Dose: 40 mg Warfarin Sodium (Coumadin Perpt) 1 each PO DAILY@1800 PRN PRN Reason: SEE COMMENTS Stop: 10/31/17 18:01 Impressions Chest X-Ray 05/01/17 13:57 IMPRESSION: Left-sided dual lead pacemaker placement. No acute complication. D/ / 05/01/2017 15:25:16 Xavi Vizcarra MD / [facility]old Interpreting Provider: Xavi Vizcarra MD Echocardiogram 05/01/17 23:10 Impressions: Atrial flutter, BBB. Heart rate 30's. LVEF 55%. Indeterminate diastolic function. Normal right ventricular structure and function. Bi-atrial enlargement. Mild aortic regurgitation. Mild-moderate mitral regurgitation. Systolic anterior motion (CHELSEY) of the anterior leaflet of the mitral valve is noted. There is a mild outflow tract obstruction, PG 24 mmHg. Mild tricuspid regurgitation. Mild pulmonary hypertension. Left Ventricular Wall Motion: Rest Echo Findings All wall segments showed normal motion. Findings: Study Quality * Technically adequate exam. ECG Findings * Atrial flutter, BBB. Heart rate 30's. Left Ventricle * Basal septal hypertrophy. * LVEF 55%. * Indeterminate diastolic function. Right Ventricle * Normal right ventricular structure and function. Left Atrium * Moderately dilated left atrium. Right Atrium * Moderately dilated right atrium. Aortic Valve * Aortic valve not well visualized. * No aortic stenosis. * Mild aortic regurgitation. Mitral Valve * Normal mitral valve structure. * No mitral stenosis. * Mild mitral annular calcification * Mild-moderate mitral regurgitation. * Systolic anterior motion (CHELSEY) of the anterior leaflet of the mitral valve is noted. There is a mild outflow obstruction, PG 24 mmHg. Tricuspid Valve * Mild tricuspid regurgitation. * Normal tricuspid valve structure. * Estimated RA pressure is 8 mmHg. * Estimated RVSP is 47 mmHg. * Mild pulmonary hypertension. Pulmonic Valve * Pulmonic valve is not well visualized. * No pulmonic stenosis. * No pulmonic regurgitation. Pulmonary Artery * Pulmonary artery not well visualized. Aorta * Normally sized aortic root. * Ascending aorta is not well visualized. Pericardium * There is no pericardial effusion present. Interatrial Septum * No evidence of PFO by color Doppler. IVC * The IVC is not dilated. * < 50% respiratory change. Chest X-Ray 05/02/17 06:00 IMPRESSION: No acute cardiopulmonary process. D/ / Kwame Arteaga MD / Kwame Arteaga MD Interpreting Provider: Kwame Arteaga MD - Imaging and Cardiology Echo: report reviewed Other Results: 12 hour tele: avg HR=66 paced. - EKG Interpretation EKG results cardiology: personally reviewed - VTE Reasons for not Prescribing Prophylaxis: Not indicated-Anticoagulated or INR therapeutic Consult Discharge Plan - Plan Additional Instructions: ACTIVITY: Moderate activity for the next 7 days. No lifting more than 5 pounds ( gallon of milk) for 4-6 weeks. Avoid lifting your arm on the same side as the device for 4 weeks. BATHING /SHOWERING: Do not remove the large bandage over the site for 2 days. Do not allow the device to get wet for 7-10 days. You may bathe/shower, but do not use soap and water on the site. When bathing, keep the site dry by covering with Saran wrap or a towel. WOUND CARE: The white steri-strips will start to peel away and come off after 14 days, or your doctor will remove them after [address] into or on top of the incision. Do not use cotton swabs. Do not use any antibiotic ointment or Vitamin E on the site. REMINDERS: You may use electrical devices, such as, microwaves, hair dryers, electric razors, electric blankets, etc. as long as they are in good condition and kept 6 -8 inches away from the device. It is recommended to use cell phones on the opposite side of your device. Notify security personnel at the airport that you have a device before you go through airport security screening. When at places with security monitors, such as a grocery store, do not linger near these monitors. It is fine to walk past them in a normal manner. Refer to your owners manual for more specific directions. CARRY YOUR PACEMAKER/ICD CARD WITH YOU AT ALL TIMES Return to work as instructed per physician Resume driving as instructed per physician Keep all scheduled follow up appointments Resume medications as instructed Contact [facility] ( ) if: You develop excessive bleeding from insertion or wound site not controlled by applying pressure You develop a fever greater than 101 degrees Fahrenheit Your incision becomes reddened at or around the site Your incision develops yellowish or greenish drainage or development of white pimple-like bumps You experience excessive pain You develop swelling in your ankles You experience muscle switching You develop excessive hiccupping If you experience chest pain, shortness of breath, dizziness, or extreme tiredness, stop the activity and rest. Please notify [facility] office if you experience any of these symptoms and they are not relieved by rest please call 911! Referrals: NONE,PCP [Non-Partnered Physician] - Joe Bhat MD [Partnered Physician] -
--- NOTE | 2017-05-02 11:11 | Discharge Summary ---
Date of Encounter: 05/02/17 Time of Encounter: 09:00 - Discharge Diagnosis (1) Syncope Priority: Primary Status: Acute Qualifiers: Syncope type: unspecified Qualified Code(s): R55 - Syncope and collapse (2) Atrial flutter Priority: Secondary Status: Acute Qualifiers: Atrial flutter type: unspecified Qualified Code(s): I48.92 - Unspecified atrial flutter (3) Bradycardia with 31-40 beats per minute Priority: Secondary Status: Acute (4) DVT prophylaxis Priority: Secondary Status: Acute (5) HTN (hypertension) Priority: Secondary Status: Chronic Qualifiers: Hypertension type: essential hypertension Qualified Code(s): I10 - Essential (primary) hypertension - Discharge Medications Home Medications: Losartan Potassium [Cozaar] 100 mg PO DAILY 04/30/17 [History] Warfarin [Coumadin] 5 mg PO DAILY 04/30/17 [History] Allergies/Adverse Reactions: 3 Allergy/AdvReac Type Severity Reaction Status Date / Time No Known Allergies Allergy Verified 04/30/17 15:28 Procedures/tests Complete & Pending: Procedures Performed prior 72 hours Category Date Time Status CL Insert Permanent Pacemaker [CL] Routine Gold Beater 05/01/17 10:34 Completed Date of admission: 05/01/17 07:43 Primary care physician: Joe Zarate Consults: 04/30/17 19:58 Consult to Cardiology [CONS] Routine Comment: Consulting Provider: Miguelangel Mo Reason for Consult: a-flutter, syncopal event today with a 10-sec pause Time Notified: 20:00 Call Completed: No Discharging clinician: Lucy Will Anticipated date of discharge: 05/02/17 - Patient Status Disposition: Home, Self-Care Condition: Good Functional capacity at discharge: independent ambulation Overall status at discharge: patient is progressing back to baseline - Discharge Instructions Instructions: Atrial Flutter (DC), Syncope (DC), Chronic Hypertension (DC) Follow Up With: Joe Bhat MD [Partnered Physician] - 07/04/17 2:30 pm (Additional Appointments: [facility]- 05-08-2017 @ 11:00am (wound) Pac[facility] Clinic- 06-06-2017 @ 10:30am (device)) NONE,PCP [Non-Partnered Physician] - Additional Instructions: ACTIVITY: Moderate activity for the next 7 days. No lifting more than 5 pounds ( gallon of milk) for 4-6 weeks. Avoid lifting your arm on the same side as the device for 4 weeks. BATHING /SHOWERING: Do not remove the large bandage over the site for 2 days. Do not allow the device to get wet for 7-10 days. You may bathe/shower, but do not use soap and water on the site. When bathing, keep the site dry by covering with Saran wrap or a towel. WOUND CARE: The white steri-strips will start to peel away and come off after 14 days, or your doctor will remove them after [address] into or on top of the incision. Do not use cotton swabs. Do not use any antibiotic ointment or Vitamin E on the site. REMINDERS: You may use electrical devices, such as, microwaves, hair dryers, electric razors, electric blankets, etc. as long as they are in good condition and kept 6 -8 inches away from the device. It is recommended to use cell phones on the opposite side of your device. Notify security personnel at the airport that you have a device before you go through airport security screening. When at places with security monitors, such as a grocery store, do not linger near these monitors. It is fine to walk past them in a normal manner. Refer to your owners manual for more specific directions. CARRY YOUR PACEMAKER/ICD CARD WITH YOU AT ALL TIMES Return to work as instructed per physician Resume driving as instructed per physician Keep all scheduled follow up appointments Resume medications as instructed Contact [facility] ( ) if: You develop excessive bleeding from insertion or wound site not controlled by applying pressure You develop a fever greater than 101 degrees Fahrenheit Your incision becomes reddened at or around the site Your incision develops yellowish or greenish drainage or development of white pimple-like bumps You experience excessive pain You develop swelling in your ankles You experience muscle switching You develop excessive hiccupping If you experience chest pain, shortness of breath, dizziness, or extreme tiredness, stop the activity and rest. Please notify [facility] office if you experience any of these symptoms and they are not relieved by rest please call 911! - Diet and Activity Activity: increase activity as tolerated Diet: low salt diet Hospital course: Mr. Delgado is a 76 year old male patient with history of atrial fibrillation/ flutter who was hospitalized here after a syncopal episode. He was found to be severely bradycardic. He was placed in the ICU on intravenous dopamine per cardiac recommendations. He has been evaluated by cardiology and was recommended placement of pacemaker. This was done yesterday and since then patient is doing much better. He has been clinically deemed stable to be discharged home. His rhythm has also been converted to normal sinus rhythm. He has been recommended to continue anticoagulation with Coumadin. He will follow up with electrophysiology after discharge for further management. - Time Spent with Patient Total time spent providing and/or coordinating discharge services: Greater than 30 minutes (32 min) - Constitutional Vitals: Temp Pulse Resp BP Pulse Ox 98.7 F 61 18 163/81 95 05/02/17 08:00 05/02/17 08:00 05/02/17 08:00 05/02/17 08:00 05/02/17 08:00 General appearance: Present: cooperative, A&O X 3, no acute distress, answers questions appropriately - Respiratory Respiratory exam: Present: CTAB. Absent: accessory muscle use, rales, rhonchi, wheezes - Cardiovascular Cardiovascular exam: Present: RRR, +S1, +S2. Absent: diastolic murmur, gallop, rubs, systolic murmur - GI/Abdominal GI/Abdominal exam: Present: normal bowel sounds, soft, no peritoneal signs. Absent: distended, tenderness - Extremities Exam Extremities exam: Present: warm, radial pulses palpable and symmetrical. Absent : calf tenderness, cyanotic, pedal edema - Neurological Exam Neurological exam: Present: alert, CN II-XII intact, oriented X3, no focal deficits. Absent: facial droop, speech deficit - VTE Reasons for not Prescribing Prophylaxis: Not indicated-Anticoagulated or INR therapeutic
[2017-05-02 11:42] VITALS: BP 154/85
[2017-05-02] MEDS ORDERED: *HR* Warfarin 5 MG TABLET PO ONE (18:00)
== END 2017-05-02 12:20 | disposition home or self-care (01) | DRG 243 ==
LOC: 2ANU 15:08 → EMEROO 15:08 → 2ANU 21:19 → ICNU 05-01 05:11
PROVIDERS: ADMIT Internal Medicine; ATTEND Internal Medicine

== ENCOUNTER 2022-01-16 18:28 | Observation (INO) ==
[2022-01-16 20:08] LABS: Basophils % 0.5 %; Eosinophils # 0.2 K/mcL (0.0-0.6); Eosinophils % 2.8 %; Hematocrit 44.2 % (37.5-50.1); Hemoglobin 14.8 g/dL (12.9-16.9); Immature Granulocytes % 0.2 % (0-4); Lymphocytes # 2.2 K/mcL (0.6-4.6); Lymphocytes % 36.8 %; Mean Corpuscular HGB Conc 33.5 g/dL (31.6-35.5); Mean Corpuscular Hemoglobin 33.5 pg (28.0-33.3); Mean Platelet Volume 9.8 fL (9.4-12.4); Monocytes # 0.8 K/mcL (0.0-1.3); Monocytes % 13.2 %; Neutrophils # 2.8 K/mcL (1.6-8.9); Platelet Count 165 K/mcL (140-400); Red Blood Count 4.42 M/mcL (4.19-5.50); Red Cell Distribution Width 11.9 % (11.5-14.5); Segmented Neutrophils % 46.5 %; White Blood Count 6.1 K/mcL (4.3-11.1)
[2022-01-16 20:32] LABS: Potassium 4.3 mEq/L (3.5-5.1); Troponin I 0.06 ng/mL (< 0.04)
[2022-01-16] MEDS ORDERED: Acetaminophen 325 MG TABLET PO PRN (21:02)
[2022-01-16] MEDS ORDERED: Ondansetron ODT 4 MG TAB.RAPDIS SL PRN (21:02)
[2022-01-16] MEDS ORDERED: Naloxone 0.4 MG/ML INJ IVP PRN (21:02)
[2022-01-16] MEDS ORDERED: Melatonin 3 MG TABLET PO PRN (21:02)
[2022-01-16] MEDS ORDERED: Dextrose Gel 15 GM/37.5 ML TUBE PO PRN ×2 (21:08)
[2022-01-16] MEDS ORDERED: D5% in Water 1,000 ML IVC PRN (21:08)
[2022-01-16] MEDS ORDERED: *HR* Dextrose 50 % in Water (Syg) 50 ML SYRINGE IVP PRN (21:08)
[2022-01-16 21:45] LABS: Thyroid Stimulating Hormone 1.111 mcIU/mL (0.340-5.600)
[2022-01-16] MEDS ORDERED: Furosemide 20 MG/2 ML VIAL IVP ONE (21:47)
[2022-01-16 21:48] LABS: Estimated Average Glucose 117 mg/dl; Hemoglobin A1C 5.7 %
[2022-01-16] MEDS ORDERED: *HR* Labetalol 20 MG/4 ML SYRINGE IVP ONE (22:26)
[2022-01-16] MEDS ORDERED: Nitroglycerin 0.4 MG TAB.SUBL SL PRN (22:39)
[2022-01-16] MEDS ORDERED: Apixaban 5 MG TABLET PO SCH (22:45)
[2022-01-17 04:02] LABS: Hematocrit 41.4 % (37.5-50.1); Hemoglobin 14.3 g/dL (12.9-16.9); Mean Corpuscular HGB Conc 34.5 g/dL (31.6-35.5); Mean Corpuscular Hemoglobin 33.5 pg (28.0-33.3); Mean Platelet Volume 10.3 fL (9.4-12.4); Platelet Count 157 K/mcL (140-400); Red Blood Count 4.27 M/mcL (4.19-5.50); Red Cell Distribution Width 11.9 % (11.5-14.5); White Blood Count 7.7 K/mcL (4.3-11.1)
[2022-01-17 04:20] LABS: Calcium 8.9 mg/dL (8.6-10.3); Chol/HDL Ratio 2.5 (0-4.9); Magnesium 1.7 mg/dL (1.6-2.6); Phosphorous 3.4 mg/dL (2.7-4.5); Potassium 3.7 mEq/L (3.5-5.1)
[2022-01-17] MEDS: Aspirin 81 MG TAB.CHEW PO SCH (08:25)
[2022-01-17] MEDS: carvediloL 6.25 MG TABLET PO SCH (16:38)
[2022-01-17] MEDS: Apixaban 5 MG TABLET PO SCH (20:58)
[2022-01-17] MEDS ORDERED: Vit C/E/Zn/Coppr/Lutein/Zeaxan [Preservision Areds 2] PO SCH (21:00)
[2022-01-18 07:33] VITALS: TEMP 98.6
[2022-01-18] MEDS: Aspirin 81 MG TAB.CHEW PO SCH (10:31)
[2022-01-18] MEDS: Apixaban 5 MG TABLET PO SCH (10:31)
[2022-01-18] MEDS: carvediloL 6.25 MG TABLET PO SCH (10:34)
[2022-01-18 11:54] VITALS: BP 116/58; PULSE 50; O2SAT 97
== END 2022-01-18 16:54 | disposition home or self-care (01) ==
LOC: 2ANU 18:28 → EMEROOARM 18:28 → SUATTDRO 21:19 → 2ANU 21:52
PROVIDERS: ADMIT Internal Medicine; ATTEND Hospitalist